=== PATIENT | male | born 1975 | race Caucasian/White ===

== ENCOUNTER 2023-09-12 12:08 | Outpatient (RCR) | payer OTHER, SELFPAY ==
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
== END 2023-09-14 11:59 | disposition home or self-care (01) ==
LOC: HO.PTMS 12:08
PROVIDERS: Visit Provider Psychiatry & Neurology Psychiatry
DX: F33.2 Major depressive disorder, recurrent severe without psychotic features (principal); F41.0 Panic disorder [episodic paroxysmal anxiety]; F42.9 Obsessive-compulsive disorder, unspecified; E11.9 Type 2 diabetes mellitus without complications; I10 Essential (primary) hypertension
CPT/HCPCS: 99205

== ENCOUNTER 2023-12-05 10:44 | Day surgery (SDC) | payer OTHER, SELFPAY ==
[2023-12-05 12:15] VITALS: BP 147/83; PULSE 98; RESP 14; TEMP 37.2; O2SAT 100
[2023-12-05 12:23] VITALS: BMI 37.1
[2023-12-05 12:54] LABS: Glucose, Whole Blood 148 mg/dL (60-115)
--- NOTE | 2023-12-05 13:17 | HO.ANESPROP2 ---
HPI - Anesthesia Eval Consult details Narrative: for ECT PMFSH Active Problems Active Problems: All Active Problems OCD (obsessive compulsive disorder) (Acute) Panic disorder (Acute) Essential hypertension (Acute) Non-insulin dependent type 2 diabetes mellitus (Acute) Major depressive disorder, recurrent severe without psychotic features (Acute) Past Medical History Medical History OCD (obsessive compulsive disorder) Panic disorder Essential hypertension Non-insulin dependent type 2 diabetes mellitus Major depressive disorder, recurrent severe without psychotic features Family History Family history of problems with anesthesia: No Surgical History History of Problems with Anesthesia: No Social History Social History Advance Directives: No Advance Directives Information Provided: Yes Meds Home Medications ?Medication ?Instructions ?Recorded ?Confirmed ?Last Taken ?Type lisinopril 12/02/23 Unknown History lorazepam 12/02/23 Unknown History metformin 12/02/23 Unknown History sertraline 12/02/23 12/02/23 Unknown History Exam Height,Weight and Vital Signs: Height 5 ft 6 in Weight 104.326 kg Last Vital Signs Temp 99 F 12/05/23 12:15 Pulse 98 12/05/23 12:15 Resp 14 12/05/23 12:15 BP 147/83 H 12/05/23 12:15 Pulse Ox 100 12/05/23 12:15 O2 Del Method Room Air 12/05/23 12:15 Pertinent Lab Results Pertinent Lab Results: Laboratory Tests 12/05/23 12:49 POC Glucose 148 H Airway Mallampati Class: III TM Dist: <=3cm Neck ROM: Limited Heart: rrr Lungs: cta Assessment and Plan Assessment Anesthesia Assessment: Anesthesia Plan Discussed Final Anesthetic Review Family History of Problems with Anesthesia: No History of Problems with Anesthesia: No NPO: Yes ASA Class: III Final Preanesthetic Review: No Changes in Pt Med Stat, Meds/Allgs Chart Reviewed, Consent Obtained/Reviewed and Anes Risks/Benef Reviewed Patient Risk: Intermediate Procedure Risk: Low Anesthetic Plan Anesthetic Plan: GA Disposition: Standard PACU
--- NOTE | 2023-12-05 13:43 | P.HPSUR_ITS ---
Pre-Procedural Eval Section A - 24 Hr Update-Section A only Date of Service: 12/05/23 The patient is an INPATIENT: Yes Changes since office visit: No Cold of Flu in the past 2 weeks, No New Medical Problems, No Changes in Medication and No Patient answered all questions The patient has been examined within 24 hours of the surgical procedure. The History & Physical has been completed within 30 days and I have reviewed it.: Yes Section B - Complete if H&P > 30 days Chief Complaint: depression Details of Present Illness: hx of depression, failure to several antidepressants Relevant Family History (Specify if Yes): No Relevant Social History: None Present Medications: see Short Stay Collaborative assessment Medical History: No relevant PMH History of Previous Operations: No relevant previous surgery Review of Systems Sugical H&P ROS: Negative: Constitution, Cardiovascular, Respiratory, Neurological, Psychiatric, Hem-Onc, Allergic/Immunologic, Gastrointestinal, Genitourinary, Musculoskeletal, Integumentary, Endocrine and Eyes /Ears/Nose/Throat Exam Surgical H&P Exam: Normal: HEENT, Normal: Heart, Normal: Lungs, Normal: Extremities, Normal: Abdomen, Normal: Skin and Normal: Neurological Plan Diagnosis/Plan: Unchanged I have reviewed the history and physical and performed a pertinent physical examination on my patient. No changes have occurred unless specified. Time Spent With Patient Time: Total time managing care of this patient today __30__ minutes.
--- NOTE | 2023-12-05 13:59 | HO.ECTPROC ---
ECT Procedure Note Diagnosis/Treatment Date of Service: 12/05/23 Diagnosis: Major Depressive Disorder Current Treatment Number: 1 Treatment: Series Interval Clinical Notes: The patient reported depression that has failed several anitdepressants, [facility] and decided to have ECT. No prior expereinec on ECT. 1ST ECT done on right unilateral 0.25 at 100%. The patient didn't fall sleep at all with Etomidate that was pushed extra 20 mg and finally, Propofol given with good result. ECT done with no complications, woke up well. Time: Total time managing care of this patient today __30__ minutes. ECT Settings Device: THYMATRON DGx Electrode Placement: Right Unilateral Program/Pulse Width: 0.25 Energy Percent: 100 Seizure Duration By EEG (in seconds): 20 By Motor Observation (in seconds): 55 Medications Administration General Anesthetic: Etomidate (20 mg with no total sedation) and Propofol (200 mg) Muscle Relaxant: Succinylcholine (160 mg) Airway Management Airway Management: Bag Mask Ventilation Treatment Recommendations Electrode Placement: Right Unilateral Program/Pulse Width: 0.25 Energy Percent: 90 Notes: The patient needed both Etomidate and Propofol to sedate him Pt Tolerated Procedure w/o Issue: Yes
[2023-12-05 14:03] VITALS: BP 168/88; PULSE 114; RESP 14; TEMP 36.5; O2SAT 99
[2023-12-05 14:08] VITALS: BP 190/95; PULSE 110; RESP 14; O2SAT 99
[2023-12-05 14:13] VITALS: BP 154/91; PULSE 108; RESP 15; O2SAT 94
[2023-12-05 14:18] VITALS: BP 161/97; PULSE 108; RESP 16; O2SAT 94
[2023-12-05 14:33] VITALS: BP 152/97; PULSE 98; RESP 16; TEMP 36.5; O2SAT 94
== END 2023-12-05 15:01 | disposition home or self-care (01) ==
PROVIDERS: Psychiatry & Neurology Psychiatry; Visit Provider Psychiatry & Neurology Psychiatry
PROC: (CPT 90870; principal; 2023-12-05 12:30)
DX: F33.2 Major depressive disorder, recurrent severe without psychotic features (principal); F42.9 Obsessive-compulsive disorder, unspecified; F41.0 Panic disorder [episodic paroxysmal anxiety]; F41.9 Anxiety disorder, unspecified; G89.29 Other chronic pain; M43.17 Spondylolisthesis, lumbosacral region; I10 Essential (primary) hypertension; E11.9 Type 2 diabetes mellitus without complications; Z79.84 Long term (current) use of oral hypoglycemic drugs; Z79.899 Other long term (current) drug therapy
CPT/HCPCS: 82947; 90870; J0330; J2405; J2704

== ENCOUNTER → 2023-12-05 10:44 | Outpatient (BNV) | payer OTHER, SELFPAY | PROVIDERS: Visit Provider Psychiatry & Neurology Psychiatry | DX: F33.3 Major depressive disorder, recurrent, severe with psychotic symptoms (principal) | CPT/HCPCS: 90870 ==

== ENCOUNTER 2023-12-07 05:52 | Day surgery (SDC) | payer OTHER, SELFPAY ==
[2023-12-07] VITALS (7 sets, daily range): BP systolic 156–185; BP diastolic 72–97; PULSE 93–125; RESP 15–18; TEMP 36.3–36.9; O2SAT 96–100; BMI 37.1
--- NOTE | 2023-12-07 07:32 | MHC.SHP ---
Pre-Procedural Eval Section A - 24 Hr Update-Section A only Date of Service: 12/07/23 The patient is an INPATIENT: No Changes since office visit: Yes Cold of Flu in the past 2 weeks, Yes New Medical Problems, Yes Changes in Medication and Yes Patient answered all questions The patient has been examined within 24 hours of the surgical procedure. The History & Physical has been completed within 30 days and I have reviewed it.: No Section B - Complete if H&P > 30 days Chief Complaint: depression Allergies: Allergies Allergy/AdvReac Type Severity Reaction Status Date / Time bupropion [From Wellbutrin] Allergy Seizure Verified 12/05/23 14:05 Plan I have reviewed the history and physical and performed a pertinent physical examination on my patient. No changes have occurred unless specified. Time Spent With Patient Time: Total time managing care of this patient today ____ minutes.
--- NOTE | 2023-12-07 07:38 | HO.ANESPROP2 ---
HPI - Anesthesia Eval Consult details Narrative: for ECT PMFSH Active Problems Active Problems: All Active Problems OCD (obsessive compulsive disorder) (Acute) Panic disorder (Acute) Essential hypertension (Acute) Non-insulin dependent type 2 diabetes mellitus (Acute) Major depressive disorder, recurrent severe without psychotic features (Acute) Past Medical History Medical History OCD (obsessive compulsive disorder) Panic disorder Essential hypertension Non-insulin dependent type 2 diabetes mellitus Major depressive disorder, recurrent severe without psychotic features Family History Family history of problems with anesthesia: No Surgical History History of Problems with Anesthesia: No Social History Social History Advance Directives: No Advance Directives Information Provided: Yes Meds Allergies Allergy/AdvReac Type Severity Reaction Status Date / Time bupropion [From Wellbutrin] Allergy Seizure Verified 12/05/23 14:05 Home Medications ?Medication ?Instructions ?Recorded ?Confirmed ?Last Taken ?Type lisinopril 12/02/23 Unknown History lorazepam 12/02/23 Unknown History metformin 12/02/23 Unknown History sertraline 12/02/23 12/02/23 Unknown History Exam Height,Weight and Vital Signs: Height 5 ft 6 in Weight 104.326 kg Last Vital Signs Temp 97.4 F 12/07/23 06:44 Pulse 93 12/07/23 06:44 Resp 16 12/07/23 06:44 BP 167/87 H 12/07/23 06:44 Pulse Ox 98 12/07/23 06:44 O2 Del Method Room Air 12/07/23 06:44 Airway Mallampati Class: III TM Dist: <=3cm Neck ROM: Full Loose/Missing/Broken Teeth: No Heart: ok Lungs: ok Assessment and Plan Assessment Anesthesia Assessment: Anesthesia Plan Discussed and Chart Reviewed Final Anesthetic Review Family History of Problems with Anesthesia: No History of Problems with Anesthesia: No NPO: Yes ASA Class: III Final Preanesthetic Review: No Changes in Pt Med Stat, Meds/Allgs Chart Reviewed, Consent Obtained/Reviewed and Anes Risks/Benef Reviewed Patient Risk: Intermediate Procedure Risk: Intermediate Anesthetic Plan Anesthetic Plan: GA and Agree w/ Assess. and Plan Disposition: Standard PACU
--- NOTE | 2023-12-07 07:50 | HO.ECTPROC ---
ECT Procedure Note Diagnosis/Treatment Date of Service: 12/07/23 Diagnosis: Major Depressive Disorder Previous ECT Date: 12/05/23 Current Treatment Number: 2 Treatment: Series Interval Clinical Notes: The patient reported still beend dysphoric. He had muscle aches and headaches after the first ECT. Today, we sedated him with Bervital 150 with fair response. ECT parameters lowered to 0.25 at 90% and he had a long seizure that resolved spontaneusly. He woke up well. Time: Total time managing care of this patient today ____ minutes. ECT Settings Device: THYMATRON DGx Electrode Placement: Right Unilateral Program/Pulse Width: 0.50 Energy Percent: 90 Seizure Duration By EEG (in seconds): 73 By Motor Observation (in seconds): 31 Medications Administration General Anesthetic: Methohexital (150) Muscle Relaxant: Succinylcholine (160) Ancillary Medications Analgesics: Torodol - Pre ECT Anti-emetics: Zofran - Pre ECT Airway Management Airway Management: Bag Mask Ventilation Treatment Recommendations Electrode Placement: Right Unilateral Program/Pulse Width: 0.25 Energy Percent: 80 Notes: Next time use Brevital 120 and lower the stimuli to 80% Pt Tolerated Procedure w/o Issue: Yes
== END 2023-12-07 10:41 | disposition home or self-care (01) ==
PROVIDERS: Visit Provider Psychiatry & Neurology Psychiatry
PROC: (CPT 90870; principal; 2023-12-07 07:30)
DX: F33.2 Major depressive disorder, recurrent severe without psychotic features (principal); F41.0 Panic disorder [episodic paroxysmal anxiety]; F42.9 Obsessive-compulsive disorder, unspecified; I10 Essential (primary) hypertension; E11.9 Type 2 diabetes mellitus without complications; Z79.84 Long term (current) use of oral hypoglycemic drugs; Z79.899 Other long term (current) drug therapy
CPT/HCPCS: 90870; J0330; J1885; J2250; J2704

== ENCOUNTER → 2023-12-07 05:52 | Outpatient (BNV) | payer OTHER, SELFPAY | PROVIDERS: Visit Provider Psychiatry & Neurology Psychiatry | DX: F33.3 Major depressive disorder, recurrent, severe with psychotic symptoms (principal) | CPT/HCPCS: 90870 ==

== ENCOUNTER 2023-12-09 05:48 | Day surgery (SDC) | payer OTHER, SELFPAY ==
[2023-12-09] VITALS (7 sets, daily range): BP systolic 126–157; BP diastolic 73–94; PULSE 86–108; RESP 16; TEMP 36.1–36.8; O2SAT 95–100; BMI 37.1
[2023-12-09 06:32] LABS: Glucose, Whole Blood 119 mg/dL (60-115)
--- NOTE | 2023-12-09 06:53 | P.CONAN_ITS ---
[facility] Active Problems Active Problems: All Active Problems OCD (obsessive compulsive disorder) (Acute) Panic disorder (Acute) Essential hypertension (Acute) Non-insulin dependent type 2 diabetes mellitus (Acute) Major depressive disorder, recurrent severe without psychotic features (Acute) Past Medical History Medical History OCD (obsessive compulsive disorder) Panic disorder Essential hypertension Non-insulin dependent type 2 diabetes mellitus Major depressive disorder, recurrent severe without psychotic features Family History Family history of problems with anesthesia: No Surgical History History of Problems with Anesthesia: No Social History Social History Advance Directives: No Advance Directives Information Provided: Yes Meds Allergies Allergy/AdvReac Type Severity Reaction Status Date / Time bupropion [From Wellbutrin] Allergy Seizure Verified 12/05/23 14:05 Active Medications: Current Medications Lactated Ringer's (Lr) 1,000 mls @ 50 mls/hr IVCONT .Q20H KISHAN Naloxone HCl (Naloxone Hcl 0.4 Mg/Ml Vial) 0.04 mg IVPUSH Q5M PRN PRN Reason: Excessive sedation or RR < 8 Home Medications ?Medication ?Instructions ?Recorded ?Confirmed ?Last Taken ?Type lisinopril 12/02/23 Unknown History lorazepam 12/02/23 Unknown History metformin 12/02/23 Unknown History sertraline 12/02/23 12/02/23 Unknown History Exam Height,Weight and Vital Signs: Height 5 ft 6 in Weight 104.326 kg Last Vital Signs Temp 97 F 12/09/23 06:40 Pulse 88 12/09/23 06:40 Resp 16 12/09/23 06:40 BP 134/79 12/09/23 06:40 Pulse Ox 97 12/09/23 06:40 O2 Del Method Room Air 12/09/23 06:40 Pertinent Lab Results Pertinent Lab Results: Laboratory Tests 12/09/23 06:28 POC Glucose 119 H Airway Mallampati Class: II TM Dist: >3cm Neck ROM: Full Heart: rrr Lungs: cta Assessment and Plan Assessment Anesthesia Assessment: Anesthesia Plan Discussed and Chart Reviewed Final Anesthetic Review Family History of Problems with Anesthesia: No History of Problems with Anesthesia: No NPO: Yes ASA Class: III Final Preanesthetic Review: No Changes in Pt Med Stat, Meds/Allgs Chart Reviewed and Consent Obtained/Reviewed Patient Risk: Intermediate Procedure Risk: Intermediate Anesthetic Plan Anesthetic Plan: GA Disposition: Standard PACU
[2023-12-09] MEDS: Lactated Ringers 1,000 ML 50 ML IVCONT (06:58)
--- NOTE | 2023-12-09 08:06 | HO.ECTPROC ---
ECT Procedure Note Diagnosis/Treatment Date of Service: 12/09/23 Diagnosis: Major Depressive Disorder Previous ECT Date: 12/07/23 Current Treatment Number: 3 Treatment: Series Interval Clinical Notes: pt with some anxiety post ect no clear change to mood ect done rul versed 2 mg post was helpful klonapin 0.5 po at d/c Time: Total time managing care of this patient today ____ minutes. ECT Settings Device: THYMATRON DGx Electrode Placement: Right Unilateral Program/Pulse Width: 0.25 Energy Percent: 80 Seizure Duration By EEG (in seconds): 72 Medications Administration General Anesthetic: Methohexital (120) Muscle Relaxant: Succinylcholine (160) Ancillary Medications Analgesics: Torodol - Pre ECT (30) Miscillaneous Medications: Midazolam (2 ) Airway Management Airway Management: Bag Mask Ventilation Treatment Recommendations Energy Percent: 65 Pt Tolerated Procedure w/o Issue: Yes
[2023-12-09] MEDS: clonazePAM 0.5 MG TABLET PO (08:32)
== END 2023-12-09 09:12 | disposition home or self-care (01) ==
PROVIDERS: Visit Provider Psychiatry & Neurology Psychiatry
PROC: (CPT 90870; principal; 2023-12-09 08:00)
DX: F33.2 Major depressive disorder, recurrent severe without psychotic features (principal); F41.0 Panic disorder [episodic paroxysmal anxiety]; F42.9 Obsessive-compulsive disorder, unspecified; I10 Essential (primary) hypertension; E11.9 Type 2 diabetes mellitus without complications; Z79.84 Long term (current) use of oral hypoglycemic drugs; Z79.899 Other long term (current) drug therapy
CPT/HCPCS: 82947; 90870; J0330; J1596; J1805; J1885; J2250; J2405; J2704

== ENCOUNTER → 2023-12-09 05:48 | Outpatient (BNV) | payer OTHER, SELFPAY | PROVIDERS: Visit Provider Psychiatry & Neurology Psychiatry | DX: F33.2 Major depressive disorder, recurrent severe without psychotic features (principal) | CPT/HCPCS: 90870 ==

== ENCOUNTER 2023-12-12 05:51 | Day surgery (SDC) | payer OTHER, SELFPAY ==
[2023-12-12] VITALS (7 sets, daily range): BP systolic 148–163; BP diastolic 74–94; PULSE 79–105; RESP 14–16; TEMP 35.9–37; O2SAT 94–97; BMI 37.1
--- NOTE | 2023-12-12 06:56 | HO.ANESPROP2 ---
HPI - Anesthesia Eval Consult details Narrative: For ECT. PMFSH Active Problems Active Problems: All Active Problems OCD (obsessive compulsive disorder) (Acute) Panic disorder (Acute) Essential hypertension (Acute) Non-insulin dependent type 2 diabetes mellitus (Acute) Major depressive disorder, recurrent severe without psychotic features (Acute) Past Medical History Medical History OCD (obsessive compulsive disorder) Panic disorder Essential hypertension Non-insulin dependent type 2 diabetes mellitus Major depressive disorder, recurrent severe without psychotic features Family History Family history of problems with anesthesia: No Surgical History History of Problems with Anesthesia: No Social History Social History Advance Directives: No Advance Directives Information Provided: Yes Meds Allergies Allergy/AdvReac Type Severity Reaction Status Date / Time bupropion [From Wellbutrin] Allergy Seizure Verified 12/05/23 14:05 Home Medications ?Medication ?Instructions ?Recorded ?Confirmed ?Last Taken ?Type lisinopril 12/02/23 Unknown History lorazepam 12/02/23 Unknown History metformin 12/02/23 Unknown History sertraline 12/02/23 12/02/23 Unknown History Exam Height,Weight and Vital Signs: Height 5 ft 6 in Weight 104.326 kg Last Vital Signs Temp 96.7 F L 12/12/23 06:42 Pulse 79 12/12/23 06:42 Resp 16 12/12/23 06:42 BP 152/85 H 12/12/23 06:42 Pulse Ox 97 12/12/23 06:42 O2 Del Method Room Air 12/12/23 06:42 Airway Mallampati Class: II TM Dist: <=3cm Neck ROM: Full Loose/Missing/Broken Teeth: No Heart: ok Lungs: ok Assessment and Plan Assessment Anesthesia Assessment: Anesthesia Plan Discussed and Chart Reviewed Final Anesthetic Review Family History of Problems with Anesthesia: No History of Problems with Anesthesia: No NPO: Yes ASA Class: III Final Preanesthetic Review: No Changes in Pt Med Stat, Meds/Allgs Chart Reviewed, Consent Obtained/Reviewed and Anes Risks/Benef Reviewed Patient Risk: Intermediate Procedure Risk: Intermediate Anesthetic Plan Anesthetic Plan: GA and Agree w/ Assess. and Plan Disposition: Standard PACU
--- NOTE | 2023-12-12 07:04 | MHC.SHP ---
Pre-Procedural Eval Section A - 24 Hr Update-Section A only Date of Service: 12/12/23 The patient is an INPATIENT: No Changes since office visit: No Cold of Flu in the past 2 weeks, No New Medical Problems, No Changes in Medication and No Patient answered all questions The patient has been examined within 24 hours of the surgical procedure. The History & Physical has been completed within 30 days and I have reviewed it.: Yes Section B - Complete if H&P > 30 days Chief Complaint: depression Allergies: Allergies Allergy/AdvReac Type Severity Reaction Status Date / Time bupropion [From Wellbutrin] Allergy Seizure Verified 12/05/23 14:05 Plan I have reviewed the history and physical and performed a pertinent physical examination on my patient. No changes have occurred unless specified. Time Spent With Patient Time: Total time managing care of this patient today ____ minutes.
[2023-12-12 07:17] LABS: Glucose, Whole Blood 107 mg/dL (60-115)
--- NOTE | 2023-12-12 07:45 | HO.ECTPROC ---
ECT Procedure Note Diagnosis/Treatment Date of Service: 12/12/23 Diagnosis: Major Depressive Disorder Previous ECT Date: 12/09/23 Current Treatment Number: 4 Treatment: Series Interval Clinical Notes: The patient reporst still dysphoria, over the weekend he was more agitated and anxious, no changes on his medications. Reported mild headache after ECT. ECT done with lower parameters on 0.25 at 78%. Seizure was optimal, resolved by itself, Versed used as usal post ECT. Woke up well. Time: Total time managing care of this patient today __30__ minutes. ECT Settings Device: THYMATRON DGx Electrode Placement: Right Unilateral Program/Pulse Width: 0.25 Energy Percent: 75 Seizure Duration By EEG (in seconds): 59 By Motor Observation (in seconds): 30 Medications Administration General Anesthetic: Methohexital (120) Muscle Relaxant: Succinylcholine (160) Ancillary Medications Miscillaneous Medications: Midazolam (after ECT) Airway Management Airway Management: Bag Mask Ventilation Treatment Recommendations No Changes Recommended: No change Pt Tolerated Procedure w/o Issue: Yes
[2023-12-12] MEDS: clonazePAM 1 MG TABLET PO (09:13)
--- NOTE | 2023-12-12 09:16 | PC.NURSE ---
PATIENT GIVEN KLONOPIN 1 MG PO PER ORDER AFTER CONTACTING DR. BEGUM PRIOR TO DISCHARGE.
== END 2023-12-12 09:17 | disposition home or self-care (01) ==
PROVIDERS: Visit Provider Psychiatry & Neurology Psychiatry
PROC: (CPT 90870; principal; 2023-12-12 08:00)
DX: F33.2 Major depressive disorder, recurrent severe without psychotic features (principal); F34.1 Dysthymic disorder; F41.0 Panic disorder [episodic paroxysmal anxiety]; F42.9 Obsessive-compulsive disorder, unspecified; I10 Essential (primary) hypertension; E11.9 Type 2 diabetes mellitus without complications; Z79.84 Long term (current) use of oral hypoglycemic drugs; Z79.899 Other long term (current) drug therapy; Z88.8 Allergy status to other drugs, medicaments and biological substances
CPT/HCPCS: 82947; 90870; J0330; J1885; J2250

== ENCOUNTER → 2023-12-12 05:51 | Outpatient (BNV) | payer OTHER, SELFPAY | PROVIDERS: Visit Provider Psychiatry & Neurology Psychiatry | DX: F33.2 Major depressive disorder, recurrent severe without psychotic features (principal) | CPT/HCPCS: 90870 ==

== ENCOUNTER 2023-12-14 05:52 | Day surgery (SDC) | payer OTHER, SELFPAY ==
[2023-12-14 06:31] LABS: Glucose, Whole Blood 120 mg/dL (60-115)
--- NOTE | 2023-12-14 06:37 | HO.ANESPROP2 ---
HPI - Anesthesia Eval Consult details Narrative: For ECT. PMFSH Active Problems Active Problems: All Active Problems OCD (obsessive compulsive disorder) (Acute) Panic disorder (Acute) Essential hypertension (Acute) Non-insulin dependent type 2 diabetes mellitus (Acute) Major depressive disorder, recurrent severe without psychotic features (Acute) Past Medical History Medical History (Updated 12/13/23 @ 12:14 by Raisa Matthews RN) Lumbosacral neuritis Degeneration of lumbosacral intervertebral disc Erectile dysfunction Opioid dependence in remission Atypical depressive disorder Smoker Chronic lower back pain Insomnia Hyperlipidemia Anxiety History of OCD (obsessive compulsive disorder) Pre-diabetes Seizure OCD (obsessive compulsive disorder) Panic disorder Essential hypertension Non-insulin dependent type 2 diabetes mellitus Major depressive disorder, recurrent severe without psychotic features Family History Family history of problems with anesthesia: No Surgical History History of Problems with Anesthesia: No Social History Social History Advance Directives: No Advance Directives Information Provided: Yes Meds Allergies Allergy/AdvReac Type Severity Reaction Status Date / Time bupropion [From Wellbutrin] Allergy Seizure Verified 12/05/23 14:05 Home Medications ?Medication ?Instructions ?Recorded ?Confirmed ?Last Taken ?Type lisinopril 12/02/23 Unknown History lorazepam 12/02/23 Unknown History metformin 12/02/23 Unknown History sertraline 12/02/23 12/02/23 Unknown History Exam Pertinent Lab Results Pertinent Lab Results: Laboratory Tests 12/14/23 06:26 POC Glucose 120 H Airway Mallampati Class: II TM Dist: <=3cm Neck ROM: Full Loose/Missing/Broken Teeth: No Heart: ok Lungs: ok Assessment and Plan Assessment Anesthesia Assessment: Anesthesia Plan Discussed and Chart Reviewed Final Anesthetic Review Family History of Problems with Anesthesia: No History of Problems with Anesthesia: No NPO: Yes ASA Class: III Final Preanesthetic Review: No Changes in Pt Med Stat, Meds/Allgs Chart Reviewed, Consent Obtained/Reviewed and Anes Risks/Benef Reviewed Patient Risk: Intermediate Procedure Risk: Intermediate Anesthetic Plan Anesthetic Plan: GA and Agree w/ Assess. and Plan Disposition: Standard PACU
[2023-12-14 06:50] VITALS: PULSE 85; RESP 16; TEMP 37.1; O2SAT 96; BMI 37.1
--- NOTE | 2023-12-14 07:31 | MHC.SHP ---
Pre-Procedural Eval Section A - 24 Hr Update-Section A only Date of Service: 12/14/23 The patient is an INPATIENT: No Changes since office visit: Yes Patient answered all questions; No Cold of Flu in the past 2 weeks, No New Medical Problems and No Changes in Medication The patient has been examined within 24 hours of the surgical procedure. The History & Physical has been completed within 30 days and I have reviewed it.: Yes Section B - Complete if H&P > 30 days Chief Complaint: depression Allergies: Allergies Allergy/AdvReac Type Severity Reaction Status Date / Time bupropion [From Wellbutrin] Allergy Seizure Verified 12/05/23 14:05 Plan I have reviewed the history and physical and performed a pertinent physical examination on my patient. No changes have occurred unless specified. Time Spent With Patient Time: Total time managing care of this patient today ____ minutes.
--- NOTE | 2023-12-14 07:48 | HO.ECTPROC ---
ECT Procedure Note Diagnosis/Treatment Date of Service: 12/14/23 Diagnosis: Major Depressive Disorder and Other (ptsd) Previous ECT Date: 12/12/23 Current Treatment Number: 5 Treatment: Series Interval Clinical Notes: pt remains depressed some agitation post ect previously did better today versed 2 post klonapin 1 prior to d/c discussed with pt change to BF to help response Time: Total time managing care of this patient today _30___ minutes. ECT Settings Device: THYMATRON DGx Electrode Placement: Bifrontal Program/Pulse Width: 0.25 Energy Percent: 80 Seizure Duration By EEG (in seconds): 42 Medications Administration General Anesthetic: Methohexital (120) Muscle Relaxant: Succinylcholine (160) Ancillary Medications Analgesics: Torodol - Pre ECT (30) Miscillaneous Medications: Midazolam (2) Airway Management Airway Management: Bag Mask Ventilation Treatment Recommendations No Changes Recommended: No change Notes: consider change to 0.5 pw Pt Tolerated Procedure w/o Issue: Yes
[2023-12-14 07:51] VITALS: BP 172/90; PULSE 110; RESP 18; TEMP 36.6; O2SAT 97
[2023-12-14 07:56] VITALS: BP 160/93; PULSE 108; RESP 17; O2SAT 96
[2023-12-14 08:01] VITALS: BP 172/95; PULSE 107; RESP 17; O2SAT 95
[2023-12-14 08:06] VITALS: BP 160/92; PULSE 105; RESP 17; O2SAT 95
[2023-12-14] MEDS: clonazePAM 1 MG TABLET PO (08:14)
[2023-12-14 08:22] VITALS: BP 173/92; PULSE 90; RESP 18; TEMP 36.3; O2SAT 96
== END 2023-12-14 08:38 | disposition home or self-care (01) ==
PROVIDERS: Visit Provider Psychiatry & Neurology Psychiatry
PROC: (CPT 90870; principal; 2023-12-14 07:00)
DX: F33.2 Major depressive disorder, recurrent severe without psychotic features (principal); F43.10 Post-traumatic stress disorder, unspecified; F42.9 Obsessive-compulsive disorder, unspecified; F41.0 Panic disorder [episodic paroxysmal anxiety]; I10 Essential (primary) hypertension; E11.9 Type 2 diabetes mellitus without complications; Z79.84 Long term (current) use of oral hypoglycemic drugs; Z79.899 Other long term (current) drug therapy; Z88.8 Allergy status to other drugs, medicaments and biological substances
CPT/HCPCS: 82947; 90870; J0330; J1885; J2250

== ENCOUNTER → 2023-12-14 05:52 | Outpatient (BNV) | payer OTHER, SELFPAY | PROVIDERS: Visit Provider Psychiatry & Neurology Psychiatry | DX: F33.3 Major depressive disorder, recurrent, severe with psychotic symptoms (principal) | CPT/HCPCS: 90870 ==

== ENCOUNTER 2023-12-16 05:48 | Day surgery (SDC) | payer OTHER, SELFPAY ==
[2023-12-16] VITALS (7 sets, daily range): BP systolic 144–172; BP diastolic 76–87; PULSE 79–100; RESP 16–19; TEMP 36.4–37.3; O2SAT 95–98; BMI 38.7
--- NOTE | 2023-12-16 06:59 | HO.ANESPROP2 ---
HPI - Anesthesia Eval Consult details Narrative: 48 yo M presenting for ECT PMF Active Problems Active Problems: All Active Problems OCD (obsessive compulsive disorder) (Acute) Panic disorder (Acute) Essential hypertension (Acute) Non-insulin dependent type 2 diabetes mellitus (Acute) Major depressive disorder, recurrent severe without psychotic features (Acute) Past Medical History Medical History (Updated 12/13/23 @ 12:14 by Raisa Matthews RN) Lumbosacral neuritis Degeneration of lumbosacral intervertebral disc Erectile dysfunction Opioid dependence in remission Atypical depressive disorder Smoker Chronic lower back pain Insomnia Hyperlipidemia Anxiety History of OCD (obsessive compulsive disorder) Pre-diabetes Seizure OCD (obsessive compulsive disorder) Panic disorder Essential hypertension Non-insulin dependent type 2 diabetes mellitus Major depressive disorder, recurrent severe without psychotic features Family History Family history of problems with anesthesia: No Surgical History History of Problems with Anesthesia: No Social History Social History Advance Directives: No Advance Directives Information Provided: Yes Meds Allergies Allergy/AdvReac Type Severity Reaction Status Date / Time bupropion [From Wellbutrin] Allergy Seizure Verified 12/05/23 14:05 Home Medications ?Medication ?Instructions ?Recorded ?Confirmed ?Last Taken ?Type lisinopril 12/02/23 Unknown History lorazepam 12/02/23 Unknown History metformin 12/02/23 Unknown History sertraline 12/02/23 12/02/23 Unknown History Exam Exam Date and Time: 12/16/23 0655 Height,Weight and Vital Signs: Height 5 ft 6 in Weight 108.862 kg Last Vital Signs Temp 97.5 F 12/16/23 06:41 Pulse 79 12/16/23 06:41 Resp 16 12/16/23 06:41 BP 144/79 H 12/16/23 06:41 Pulse Ox 96 12/16/23 06:41 O2 Del Method Room Air 12/16/23 06:41 Airway Mallampati Class: I TM Dist: >3cm Neck ROM: Full Loose/Missing/Broken Teeth: No (patient denies any loose or broken teeth) Heart: S1S2 Lungs: CTAB Assessment and Plan Assessment Anesthesia Assessment: Anesthesia Plan Discussed and Chart Reviewed Final Anesthetic Review Family History of Problems with Anesthesia: No History of Problems with Anesthesia: No NPO: Yes ASA Class: III Final Preanesthetic Review: No Changes in Pt Med Stat, Meds/Allgs Chart Reviewed, Consent Obtained/Reviewed and Anes Risks/Benef Reviewed Patient Risk: Low Procedure Risk: Low Anesthetic Plan Anesthetic Plan: GA and Agree w/ Assess. and Plan Disposition: Standard PACU
--- NOTE | 2023-12-16 07:17 | MHC.SHP ---
Pre-Procedural Eval Section A - 24 Hr Update-Section A only Date of Service: 12/16/23 The patient is an INPATIENT: No Changes since office visit: Yes Patient answered all questions; No Cold of Flu in the past 2 weeks, No New Medical Problems and No Changes in Medication The patient has been examined within 24 hours of the surgical procedure. The History & Physical has been completed within 30 days and I have reviewed it.: Yes Section B - Complete if H&P > 30 days Chief Complaint: depression Allergies: Allergies Allergy/AdvReac Type Severity Reaction Status Date / Time bupropion [From Wellbutrin] Allergy Seizure Verified 12/05/23 14:05 Plan I have reviewed the history and physical and performed a pertinent physical examination on my patient. No changes have occurred unless specified. Time Spent With Patient Time: Total time managing care of this patient today ____ minutes.
--- NOTE | 2023-12-16 07:18 | HO.ECTPROC ---
ECT Procedure Note Diagnosis/Treatment Date of Service: 12/19/23 Diagnosis: Major Depressive Disorder Previous ECT Date: 12/16/23 Current Treatment Number: 6 Treatment: Series Interval Clinical Notes: pt without clear improvenent to this pt no cognitive s/e noted change to BF Time: Total time managing care of this patient today ____ minutes. ECT Settings Device: THYMATRON DGx Electrode Placement: Bifrontal Program/Pulse Width: 0.50 Energy Percent: 80 Seizure Duration By EEG (in seconds): 44 Medications Administration General Anesthetic: Methohexital (120) Muscle Relaxant: Succinylcholine (160) Ancillary Medications Analgesics: Torodol - Pre ECT (30) Miscillaneous Medications: Midazolam (2) Airway Management Airway Management: Bag Mask Ventilation Treatment Recommendations No Changes Recommended: No change Notes: klonopin 1 mg prn tolerated tx some post op irritability Pt Tolerated Procedure w/o Issue: Yes
[2023-12-16] MEDS: clonazePAM 1 MG TABLET PO (08:10)
== END 2023-12-16 08:34 | disposition home or self-care (01) ==
PROVIDERS: Visit Provider Psychiatry & Neurology Psychiatry
PROC: (CPT 90870; principal; 2023-12-16 07:00)
DX: F33.2 Major depressive disorder, recurrent severe without psychotic features (principal); I10 Essential (primary) hypertension; E78.5 Hyperlipidemia, unspecified; E11.9 Type 2 diabetes mellitus without complications; F42.9 Obsessive-compulsive disorder, unspecified; F41.0 Panic disorder [episodic paroxysmal anxiety]; R56.9 Unspecified convulsions; Z79.899 Other long term (current) drug therapy; Z79.84 Long term (current) use of oral hypoglycemic drugs; Z88.8 Allergy status to other drugs, medicaments and biological substances
CPT/HCPCS: 90870; J0330; J1885; J2250

== ENCOUNTER → 2023-12-16 05:48 | Outpatient (BNV) | payer OTHER, SELFPAY | PROVIDERS: Visit Provider Psychiatry & Neurology Psychiatry | DX: F33.3 Major depressive disorder, recurrent, severe with psychotic symptoms (principal) | CPT/HCPCS: 90870 ==

== ENCOUNTER 2023-12-21 05:47 | Day surgery (SDC) | payer OTHER, SELFPAY ==
[2023-12-21] VITALS (7 sets, daily range): BP systolic 136–178; BP diastolic 70–83; PULSE 90–107; RESP 13–17; TEMP 36.3–37.1; O2SAT 95–98; BMI 37.1
--- NOTE | 2023-12-21 06:45 | P.CONAN_ITS ---
FORMERLY [facility], [facility] Active Problems Active Problems: All Active Problems OCD (obsessive compulsive disorder) (Acute) Panic disorder (Acute) Essential hypertension (Acute) Non-insulin dependent type 2 diabetes mellitus (Acute) Major depressive disorder, recurrent severe without psychotic features (Acute) Past Medical History Medical History (Updated 12/13/23 @ 12:14 by Raisa Matthews RN) Lumbosacral neuritis Degeneration of lumbosacral intervertebral disc Erectile dysfunction Opioid dependence in remission Atypical depressive disorder Smoker Chronic lower back pain Insomnia Hyperlipidemia Anxiety History of OCD (obsessive compulsive disorder) Pre-diabetes Seizure OCD (obsessive compulsive disorder) Panic disorder Essential hypertension Non-insulin dependent type 2 diabetes mellitus Major depressive disorder, recurrent severe without psychotic features Family History Family history of problems with anesthesia: No Surgical History History of Problems with Anesthesia: No Social History Social History Advance Directives: No Advance Directives Information Provided: Yes Meds Allergies Allergy/AdvReac Type Severity Reaction Status Date / Time bupropion [From Wellbutrin] Allergy Seizure Verified 12/05/23 14:05 Home Medications ?Medication ?Instructions ?Recorded ?Confirmed ?Last Taken ?Type lisinopril 12/02/23 Unknown History lorazepam 12/02/23 Unknown History metformin 12/02/23 Unknown History sertraline 12/02/23 12/02/23 Unknown History Exam Airway Mallampati Class: II TM Dist: >3cm Neck ROM: Full Heart: rrr Lungs: cta Assessment and Plan Assessment Anesthesia Assessment: Anesthesia Plan Discussed and Chart Reviewed Final Anesthetic Review Family History of Problems with Anesthesia: No History of Problems with Anesthesia: No NPO: Yes ASA Class: III Final Preanesthetic Review: No Changes in Pt Med Stat, Meds/Allgs Chart Reviewed and Consent Obtained/Reviewed Patient Risk: Intermediate Procedure Risk: Low Anesthetic Plan Anesthetic Plan: GA Disposition: Standard PACU
[2023-12-21 06:53] LABS: Glucose, Whole Blood 125 mg/dL (60-115)
--- NOTE | 2023-12-21 07:25 | MHC.SHP ---
Pre-Procedural Eval Section A - 24 Hr Update-Section A only Date of Service: 12/21/23 Section B - Complete if H&P > 30 days Chief Complaint: depression Details of Present Illness: no improvement denies active si discussed change to BT Relevant Social History: None Present Medications: see Short Stay Collaborative assessment Allergies: Allergies Allergy/AdvReac Type Severity Reaction Status Date / Time bupropion [From Wellbutrin] Allergy Seizure Verified 12/05/23 14:05 Review of Systems Sugical H&P ROS: Negative: Cardiovascular and Respiratory and Yes, Specify: Psychiatric (cont quite depressed hopeless no si) Exam Surgical H&P Exam: Normal: Heart (rr), Normal: Lungs (clear ), Normal: Extremities and Normal: Neurological Exam Comment: 136/78 p 90 Plan Diagnosis/Plan: Unchanged I have reviewed the history and physical and performed a pertinent physical examination on my patient. No changes have occurred unless specified. Time Spent With Patient Time: Total time managing care of this patient today ____ minutes.
--- NOTE | 2023-12-21 07:32 | HO.ECTPROC ---
ECT Procedure Note Diagnosis/Treatment Date of Service: 12/21/23 Diagnosis: Major Depressive Disorder Previous ECT Date: 12/16/23 Current Treatment Number: 7 Treatment: Series Interval Clinical Notes: pt quite depressed agreeable to change to bt discussed risk benefits hopeless denies active si did not feel inpt was required ect completed bt some post op confusion given versed 2 mg post klonopin 1 mg prn Time: Total time managing care of this patient today __30__ minutes. 3 ECT Settings Device: THYMATRON DGx Electrode Placement: Bitemporal Program/Pulse Width: 0.50 Energy Percent: 100 Seizure Duration By EEG (in seconds): 52 Medications Administration General Anesthetic: Methohexital (120) Muscle Relaxant: Succinylcholine (160) Ancillary Medications Analgesics: Torodol - Pre ECT Anti-emetics: Zofran - Pre ECT Miscillaneous Medications: Midazolam (2) Airway Management Airway Management: Bag Mask Ventilation Treatment Recommendations Notes: continue BT
[2023-12-21] MEDS: clonazePAM 1 MG TABLET PO (08:16)
== END 2023-12-21 09:15 | disposition home or self-care (01) ==
PROVIDERS: Visit Provider Psychiatry & Neurology Psychiatry
PROC: (CPT 90870; principal; 2023-12-21 07:00)
DX: F33.2 Major depressive disorder, recurrent severe without psychotic features (principal); F42.9 Obsessive-compulsive disorder, unspecified; F41.0 Panic disorder [episodic paroxysmal anxiety]; I10 Essential (primary) hypertension; E78.5 Hyperlipidemia, unspecified; E11.9 Type 2 diabetes mellitus without complications; R56.9 Unspecified convulsions; Z79.84 Long term (current) use of oral hypoglycemic drugs; Z88.8 Allergy status to other drugs, medicaments and biological substances
CPT/HCPCS: 82947; 90870; J0330; J1885; J2250

== ENCOUNTER → 2023-12-21 05:47 | Outpatient (BNV) | payer OTHER, SELFPAY | PROVIDERS: Visit Provider Psychiatry & Neurology Psychiatry | DX: F33.3 Major depressive disorder, recurrent, severe with psychotic symptoms (principal) | CPT/HCPCS: 90870 ==

== ENCOUNTER → 2023-12-23 08:05 | Day surgery (SDC) | payer OTHER, SELFPAY | PROVIDERS: Visit Provider Psychiatry & Neurology Psychiatry | DX: F33.2 Major depressive disorder, recurrent severe without psychotic features (principal); Z53.29 Procedure and treatment not carried out because of patient's decision for other reasons; R69 Illness, unspecified ==

== ENCOUNTER 2024-01-02 05:57 | Day surgery (SDC) | payer OTHER, SELFPAY ==
[2024-01-02 06:47] VITALS: BP 159/86; PULSE 85; RESP 14; TEMP 36.9; O2SAT 97; BMI 36.3
[2024-01-02 07:09] LABS: Glucose, Whole Blood 120 mg/dL (60-115)
[2024-01-02] MEDS: Lactated Ringers 1,000 ML 100 ML IVCONT (07:12)
--- NOTE | 2024-01-02 08:18 | HO.ANESPROP2 ---
HPI - Anesthesia Eval Consult details Narrative: depression PMFSH Active Problems Active Problems: All Active Problems OCD (obsessive compulsive disorder) (Acute) Panic disorder (Acute) Essential hypertension (Acute) Non-insulin dependent type 2 diabetes mellitus (Acute) Major depressive disorder, recurrent severe without psychotic features (Acute) Past Medical History Medical History Lumbosacral neuritis Degeneration of lumbosacral intervertebral disc Erectile dysfunction Opioid dependence in remission Atypical depressive disorder Smoker Chronic lower back pain Insomnia Hyperlipidemia Anxiety History of OCD (obsessive compulsive disorder) Pre-diabetes Seizure OCD (obsessive compulsive disorder) Panic disorder Essential hypertension Non-insulin dependent type 2 diabetes mellitus Major depressive disorder, recurrent severe without psychotic features Family History Family history of problems with anesthesia: No Surgical History History of Problems with Anesthesia: No Social History Social History Advance Directives: No Advance Directives Information Provided: Yes Meds Allergies Allergy/AdvReac Type Severity Reaction Status Date / Time bupropion [From Wellbutrin] Allergy Seizure Verified 12/05/23 14:05 Active Medications: Current Medications Lactated Ringer's (Lr) 1,000 mls @ 100 mls/hr IVCONT .Q10H KISHAN Last Admin: 01/02/24 07:12 Dose: 100 mls/hr Home Medications ?Medication ?Instructions ?Recorded ?Confirmed ?Last Taken ?Type lisinopril 12/02/23 Unknown History lorazepam 12/02/23 Unknown History metformin 12/02/23 Unknown History sertraline 12/02/23 12/02/23 Unknown History Exam Height,Weight and Vital Signs: Height 5 ft 6 in Weight 102.058 kg Last Vital Signs Temp 98.5 F 01/02/24 06:47 Pulse 85 01/02/24 06:47 Resp 14 01/02/24 06:47 BP 159/86 H 01/02/24 06:47 Pulse Ox 97 01/02/24 06:47 O2 Del Method Room Air 01/02/24 06:47 Pertinent Lab Results Pertinent Lab Results: Laboratory Tests 01/02/24 07:04 POC Glucose 120 H Airway Mallampati Class: II TM Dist: >3cm Neck ROM: Full Heart: rrr Lungs: cta Assessment and Plan Assessment Anesthesia Assessment: Anesthesia Plan Discussed Final Anesthetic Review Family History of Problems with Anesthesia: No History of Problems with Anesthesia: No NPO: Yes ASA Class: III Final Preanesthetic Review: No Changes in Pt Med Stat, Meds/Allgs Chart Reviewed, Consent Obtained/Reviewed and Anes Risks/Benef Reviewed Patient Risk: Intermediate Procedure Risk: Low Anesthetic Plan Anesthetic Plan: GA Disposition: Standard PACU
[2024-01-02 08:31] VITALS: BP 150/86; PULSE 98; RESP 12; TEMP 36.8; O2SAT 99
[2024-01-02 08:36] VITALS: BP 155/87; PULSE 92; RESP 14; O2SAT 99
[2024-01-02 08:41] VITALS: BP 159/95; PULSE 91; RESP 14; O2SAT 99
[2024-01-02 08:46] VITALS: BP 146/78; PULSE 89; RESP 14; O2SAT 97
[2024-01-02 09:01] VITALS: BP 140/88; PULSE 89; RESP 16; TEMP 36.8; O2SAT 96
--- NOTE | 2024-01-31 21:59 | HO.ECTPROC ---
ECT Procedure Note Diagnosis/Treatment Date of Service: 01/02/24 Diagnosis: Major Depressive Disorder Current Treatment Number: 8 Treatment: Series Interval Clinical Notes: Pt remains depressed with some anxiety agitation feels like he wishes to go forward after discussion. Has some st memory problems alert well oriented. Agrees with change to BT since no clear improvement Time: Total time managing care of this patient today ____ minutes. ECT Settings Device: THYMATRON DGx Electrode Placement: Bitemporal Program/Pulse Width: 0.50 Energy Percent: 100 Seizure Duration By EEG (in seconds): 78 Medications Administration General Anesthetic: Methohexital Muscle Relaxant: Succinylcholine (120) Ancillary Medications Analgesics: Torodol - Pre ECT Miscillaneous Medications: Midazolam (2 mg) Airway Management Airway Management: Bag Mask Ventilation Treatment Recommendations Notes: monitor response to change to BT if no response in next 2 will d/c trial some post op anxiety much better with versed
--- NOTE | 2024-01-31 22:05 | MHC.SHP ---
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 Relevant Social History: None Present Medications: see Short Stay Collaborative assessment Allergies: Allergies Allergy/AdvReac Type Severity Reaction Status Date / Time bupropion [From Wellbutrin] Allergy Seizure Verified 12/05/23 14:05 Review of Systems Sugical H&P ROS: Negative: Cardiovascular and Respiratory and Yes, Specify: Psychiatric (cont quite depressed hopeless no si) Review of Systems Comment: no sig cold sx or sob Exam Surgical H&P Exam: Normal: Heart (rr), Normal: Lungs (clear ), Normal: Extremities and Normal: Neurological Exam Comment: 136/78 p 90 Plan Diagnosis/Plan: Unchanged I have reviewed the history and physical and performed a pertinent physical examination on my patient. No changes have occurred unless specified. Time Spent With Patient Time: Total time managing care of this patient today ____ minutes.
--- NOTE | 2024-02-01 09:24 | HO.ECTPROC ---
ECT Procedure Note Diagnosis/Treatment Date of Service: 01/02/24 Diagnosis: Bipolar disorder Interval Clinical Notes: The patient denies side effects with previous ECT, procedure done as usual. No complications Time: Total time managing care of this patient today _30___ minutes. ECT Settings Device: THYMATRON DGx Electrode Placement: Bitemporal Program/Pulse Width: 0.50 Energy Percent: 100 Medications Administration General Anesthetic: Etomidate Muscle Relaxant: Succinylcholine Ancillary Medications Miscillaneous Medications: Midazolam Airway Management Airway Management: Bag Mask Ventilation Treatment Recommendations No Changes Recommended: No change Pt Tolerated Procedure w/o Issue: Yes
== END 2024-01-02 10:22 | disposition home or self-care (01) ==
PROVIDERS: Visit Provider Psychiatry & Neurology Psychiatry
PROC: (CPT 90870; principal; 2024-01-02 07:30)
DX: F33.2 Major depressive disorder, recurrent severe without psychotic features (principal); F42.9 Obsessive-compulsive disorder, unspecified; F41.0 Panic disorder [episodic paroxysmal anxiety]; I10 Essential (primary) hypertension; E78.5 Hyperlipidemia, unspecified; E11.9 Type 2 diabetes mellitus without complications; R56.9 Unspecified convulsions; Z79.84 Long term (current) use of oral hypoglycemic drugs; Z79.899 Other long term (current) drug therapy; Z88.8 Allergy status to other drugs, medicaments and biological substances
CPT/HCPCS: 82947; 90870; J0330; J1885; J2250

== ENCOUNTER → 2024-01-02 05:57 | Outpatient (BNV) | payer OTHER, SELFPAY | PROVIDERS: Visit Provider Psychiatry & Neurology Psychiatry | DX: F33.2 Major depressive disorder, recurrent severe without psychotic features (principal) | CPT/HCPCS: 90870 ==

== ENCOUNTER → 2024-01-02 05:57 | Outpatient (BNV) | payer OTHER, SELFPAY | PROVIDERS: Visit Provider Psychiatry & Neurology Psychiatry | DX: F33.2 Major depressive disorder, recurrent severe without psychotic features (principal) | CPT/HCPCS: 90870 ==

== ENCOUNTER 2024-01-12 07:59 | Outpatient (REF) | payer OTHER, SELFPAY ==
--- NOTE | 2024-01-12 08:03 | EEG_ITS ---
This is a 16-channel EEG with an EKG lead. The patient is reported awake during the tracing. Background EEG rhythm is low to medium amplitude, mixed theta, beta with no obvious asymmetry or paroxysmal tendency. Photic stimulation does not produce any significant abnormality. Hyperventilation is not performed. Cardiac lead does not reveal any significant abnormality. No sharp wave spikes or paroxysmal tendency noted. IMPRESSION: No significant abnormality noted on this EEG to suggest he has seizure disorder. MD PRABHJOT Gupta/BERNARDA / [phone]
== END 2024-01-12 08:00 | disposition home or self-care (01) ==
LOC: HO.NEURO 07:59
PROVIDERS: Visit Provider Internal Medicine
DX: F32.A Depression, unspecified (principal)
CPT/HCPCS: 95816

== ENCOUNTER → 2024-07-03 10:34 | Outpatient (BNV) | payer OTHER, SELFPAY | PROVIDERS: PCP Internal Medicine; Visit Provider Clinical Nurse Specialist Psychiatric/Mental Health | DX: F33.2 Major depressive disorder, recurrent severe without psychotic features (principal) | CPT/HCPCS: 90791; 90867; 90868 ==

== ENCOUNTER 2024-09-03 10:00 | Outpatient (RCR) | payer OTHER, SELFPAY ==
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
--- NOTE | 2024-07-12 14:47 | HO.TMSDAILY2 ---
TMS Daily Progress Note Daily TMS Progress Note Date of Service: 07/10/24 Week #: 1 Treatment #(04-05): #1 and mapping PHQ-9 Pre-Treatment (-): 26 PHQ-9 Most Recent (04-02): 26 OLEGARIO-7 Pre-Treatment (0-21): 21 OLEGARIO-7 Most Recent (0-21): 21 CGI-I Most Recent: 4 = No Change Q-LES-Q-SF Most Recent: 37 Reviewed: TMS Mapping/Re-mapping completed Verification: I have reviewed the TMS Farm Management Teacher Note and agree with the contents. The patient remains a candidate to continue TMS treatment per protocol. Assessment and Plan (1) Major depressive disorder, recurrent severe without psychotic features: Status: Acute Plan continue TMS plan per protocol; MT 1.31 Total time managing care of this patient today: 40 minutes.
--- NOTE | 2024-07-16 12:55 | HO.TMSDAILY2 ---
TMS Daily Progress Note Daily TMS Progress Note Date of Service: 07/16/24 Week #: 1 Treatment #(04-05): 5 PHQ-9 Pre-Treatment (-): 26 PHQ-9 Most Recent (04-02): 18 OLEGARIO-7 Pre-Treatment (0-21): 21 OLEGARIO-7 Most Recent (0-21): 21 CGI-I Most Recent: 4 = No Change Q-LES-Q-SF Most Recent: 37 Reviewed: TMS Tech Note Reviewed Verification: I have reviewed the TMS Finishing Frame Runner Note and agree with the contents. The patient remains a candidate to continue TMS treatment per protocol. Assessment and Plan (1) Major depressive disorder, recurrent severe without psychotic features: Status: Acute Plan continue with TMS treatment plan
--- NOTE | 2024-07-17 12:42 | P.PNPS_ITS ---
TMS Daily Progress Note Daily TMS Progress Note Date of Service: 07/17/24 Week #: 2 Treatment #(-): 6 PHQ-9 Pre-Treatment (1-): 26 PHQ-9 Most Recent (04-02): 18 OLEGARIO-7 Pre-Treatment (0-21): 21 OLEGARIO-7 Most Recent (0-21): 21 CGI-I Most Recent: 4 = No Change Q-LES-Q-SF Most Recent: 37 Reviewed: TMS Tech Note Reviewed Verification: I have reviewed the TMS Skirt Panel Assembler Note and agree with the contents. The patient remains a candidate to continue TMS treatment per protocol. Assessment and Plan (1) Major depressive disorder, recurrent severe without psychotic features: Status: Acute Plan continue with TMS treatment plan
--- NOTE | 2024-07-31 13:02 | HO.TMSDAILY2 ---
TMS Daily Progress Note Daily TMS Progress Note Date of Service: 07/12/24 Week #: 1 Treatment #(04-05): 3 PHQ-9 Pre-Treatment (-): 26 PHQ-9 Most Recent (04-02): 26 OLEGARIO-7 Pre-Treatment (0-21): 21 OLEGARIO-7 Most Recent (0-21): 21 CGI-I Most Recent: 0 = Not Assessed Q-LES-Q-SF Most Recent: 37 Reviewed: TMS Tech Note Reviewed Verification: I have reviewed the TMS Hot Die Press Operator Note and agree with the contents. The patient remains a candidate to continue TMS treatment per protocol. Assessment and Plan (1) Major depressive disorder, recurrent severe without psychotic features: Status: Acute Plan continue with tms tx plan
--- NOTE | 2024-07-31 13:08 | HO.TMSDAILY2 ---
TMS Daily Progress Note Daily TMS Progress Note Date of Service: 07/19/24 Week #: 2 Treatment #(-): 8 PHQ-9 Pre-Treatment (1-): 26 PHQ-9 Most Recent (04-02): 18 OLEGARIO-7 Pre-Treatment (0-21): 21 OLEGARIO-7 Most Recent (0-21): 21 CGI-I Most Recent: 0 = Not Assessed Q-LES-Q-SF Most Recent: 37 Reviewed: TMS Tech Note Reviewed Verification: I have reviewed the TMS Electric Shovel Operator Note and agree with the contents. The patient remains a candidate to continue TMS treatment per protocol. Assessment and Plan (1) Major depressive disorder, recurrent severe without psychotic features: Status: Acute Plan continue tms tx plan
--- NOTE | 2024-07-31 13:09 | P.PNPS_ITS ---
TMS Daily Progress Note Daily TMS Progress Note Date of Service: 07/23/24 Week #: 2 Treatment #(-): 10 PHQ-9 Pre-Treatment (-): 26 PHQ-9 Most Recent (04-02): 21 OLEGARIO-7 Pre-Treatment (0-21): 21 OLEGARIO-7 Most Recent (0-21): 18 CGI-I Most Recent: 0 = Not Assessed Q-LES-Q-SF Most Recent: 37 Reviewed: TMS Tech Note Reviewed Verification: I have reviewed the TMS Patient Transportation Driver Note and agree with the contents. The patient remains a candidate to continue TMS treatment per protocol. Assessment and Plan (1) Major depressive disorder, recurrent severe without psychotic features: Status: Acute (2) OCD (obsessive compulsive disorder): Qualifiers: Obsessive-compulsive disorder type: mixed obsessional thoughts and acts Qualified Code(s): F42.2 - Mixed obsessional thoughts and acts Status: Acute Plan pt intrusive passive SI discussed with TMD store facility technician and with medical equipment sales- appear to be part of OCD and he denies plan or intent to act on theses. continue tms tx pplan; provide support, continue to monitor SI
--- NOTE | 2024-07-31 13:12 | P.PNPS_ITS ---
TMS Daily Progress Note Daily TMS Progress Note Date of Service: 07/24/24 Week #: 3 Treatment #(04-05): 11 PHQ-9 Pre-Treatment (-): 26 PHQ-9 Most Recent (04-02): 21 OLEGARIO-7 Pre-Treatment (0-21): 21 OLEGARIO-7 Most Recent (0-21): 18 CGI-I Most Recent: 0 = Not Assessed Q-LES-Q-SF Most Recent: 37 Reviewed: TMS Tech Note Reviewed Verification: I have reviewed the TMS Tattoo Designer Note and agree with the contents. The patient remains a candidate to continue TMS treatment per protocol. Assessment and Plan (1) Major depressive disorder, recurrent severe without psychotic features: Status: Acute (2) OCD (obsessive compulsive disorder): Qualifiers: Obsessive-compulsive disorder type: mixed obsessional thoughts and acts Qualified Code(s): F42.2 - Mixed obsessional thoughts and acts Status: Acute Plan continue tms tx plan
--- NOTE | 2024-07-31 13:13 | HO.TMSDAILY2 ---
TMS Daily Progress Note Daily TMS Progress Note Date of Service: 07/31/24 Week #: 3 Treatment #(04-05): 15 PHQ-9 Pre-Treatment (-): 26 PHQ-9 Most Recent (04-02): 22 OLEGARIO-7 Pre-Treatment (0-21): 21 OLEGARIO-7 Most Recent (0-21): 17 CGI-I Most Recent: 0 = Not Assessed Q-LES-Q-SF Most Recent: 37 Reviewed: TMS Tech Note Reviewed Verification: I have reviewed the TMS Manager Surgical Note and agree with the contents. The patient remains a candidate to continue TMS treatment per protocol. Assessment and Plan (1) OCD (obsessive compulsive disorder): Qualifiers: Obsessive-compulsive disorder type: mixed obsessional thoughts and acts Qualified Code(s): F42.2 - Mixed obsessional thoughts and acts Status: Acute (2) Major depressive disorder, recurrent severe without psychotic features: Status: Acute Plan pt reports change in energy and low mood and not wanting to get out of bed last we. Plan is to remap and reassess; re-mapping scheduled for
--- NOTE | 2024-08-01 16:23 | HO.TMSDAILY2 ---
TMS Daily Progress Note Daily TMS Progress Note Date of Service: 08/01/24 Week #: 1 Treatment #(04-05): 2 PHQ-9 Pre-Treatment (-): 26 PHQ-9 Most Recent (04-02): 26 OLEGARIO-7 Pre-Treatment (0-21): 21 OLEGARIO-7 Most Recent (0-21): 17 CGI-I Most Recent: 0 = Not Assessed Q-LES-Q-SF Most Recent: 37 Reviewed: TMS Tech Note Reviewed Verification: I have reviewed the TMS Dry Cell And Battery Assembler Note and agree with the contents. The patient remains a candidate to continue TMS treatment per protocol. Assessment and Plan (1) Major depressive disorder, recurrent severe without psychotic features: Status: Acute (2) Panic disorder: Status: Acute (3) OCD (obsessive compulsive disorder): Qualifiers: Obsessive-compulsive disorder type: mixed obsessional thoughts and acts Qualified Code(s): F42.2 - Mixed obsessional thoughts and acts Status: Acute Plan PHQ-9 elevated has been chronically at this point denies active SI MT gradually increasing patient appears to be tolerating treatment
--- NOTE | 2024-08-01 16:25 | HO.TMSDAILY2 ---
TMS Daily Progress Note Daily TMS Progress Note Date of Service: 07/13/24 Week #: 1 Treatment #(04-05): 4 PHQ-9 Pre-Treatment (-): 26 PHQ-9 Most Recent (04-02): 26 OLEGARIO-7 Pre-Treatment (0-21): 21 OLEGARIO-7 Most Recent (0-21): 17 CGI-I Most Recent: 0 = Not Assessed Q-LES-Q-SF Most Recent: 37 Reviewed: TMS Tech Note Reviewed Verification: I have reviewed the TMS Reach Lift Truck Driver Note and agree with the contents. The patient remains a candidate to continue TMS treatment per protocol. Assessment and Plan (1) Major depressive disorder, recurrent severe without psychotic features: Status: Acute (2) Panic disorder: Status: Acute (3) OCD (obsessive compulsive disorder): Qualifiers: Obsessive-compulsive disorder type: mixed obsessional thoughts and acts Qualified Code(s): F42.2 - Mixed obsessional thoughts and acts Status: Acute Plan Patient without complaint of side effect MT% gradually increased continue plan of care
--- NOTE | 2024-08-01 16:27 | HO.TMSDAILY2 ---
TMS Daily Progress Note Daily TMS Progress Note Date of Service: 07/18/24 Week #: 2 Treatment #(04-05): 7 PHQ-9 Pre-Treatment (-): 26 PHQ-9 Most Recent (04-02): 26 OLEGARIO-7 Pre-Treatment (0-21): 21 OLEGARIO-7 Most Recent (0-21): 17 CGI-I Most Recent: 0 = Not Assessed Q-LES-Q-SF Most Recent: 37 Reviewed: TMS Tech Note Reviewed Verification: I have reviewed the TMS Oxygen Equipment Preparer Note and agree with the contents. The patient remains a candidate to continue TMS treatment per protocol. Assessment and Plan (1) Major depressive disorder, recurrent severe without psychotic features: Status: Acute (2) Panic disorder: Status: Acute (3) OCD (obsessive compulsive disorder): Qualifiers: Obsessive-compulsive disorder type: mixed obsessional thoughts and acts Qualified Code(s): F42.2 - Mixed obsessional thoughts and acts Status: Acute Plan Patient without complaint of side effect MT% gradually increased continue plan of care
--- NOTE | 2024-08-01 16:28 | P.PNPS_ITS ---
TMS Daily Progress Note Daily TMS Progress Note Date of Service: 07/20/24 Week #: 2 Treatment #(04-05): 9 PHQ-9 Pre-Treatment (-): 26 PHQ-9 Most Recent (04-02): 19 OLEGARIO-7 Pre-Treatment (0-21): 21 OLEGARIO-7 Most Recent (0-21): 17 CGI-I Most Recent: 0 = Not Assessed Q-LES-Q-SF Most Recent: 37 Reviewed: TMS Tech Note Reviewed Verification: I have reviewed the TMS Tipple Tender Note and agree with the contents. The patient remains a candidate to continue TMS treatment per protocol. Assessment and Plan (1) Major depressive disorder, recurrent severe without psychotic features: Status: Acute Plan Continue plan of care tolerating treatment no significant change to this point
--- NOTE | 2024-08-02 16:46 | HO.TMSDAILY2 ---
TMS Daily Progress Note Daily TMS Progress Note Date of Service: 08/02/24 Week #: 3 Treatment #(04-05): 16 PHQ-9 Pre-Treatment (1-): 26 PHQ-9 Most Recent (04-02): 22 OLEGARIO-7 Pre-Treatment (0-21): 21 OLEGARIO-7 Most Recent (0-21): 17 CGI-I Most Recent: 0 = Not Assessed Reviewed: TMS Mapping/Re-mapping completed Verification: I have reviewed the TMS Printed Circuit Boards Plasma Etcher Note and agree with the contents. The patient remains a candidate to continue TMS treatment per protocol. Assessment and Plan (1) Major depressive disorder, recurrent severe without psychotic features: Status: Acute Plan feeling more depressed and hopeless recently, remapping completed out of concern prior stimulus parameters were inadequately therapeutic. restart treatment with new (higher) MT and new coordinates Total time managing care of this patient today: 45 minutes.
--- NOTE | 2024-08-05 22:03 | P.PNPS_ITS ---
TMS Daily Progress Note Daily TMS Progress Note Date of Service: 07/23/24 Week #: 2 Treatment #(04-05): 10 PHQ-9 Pre-Treatment (-): 26 PHQ-9 Most Recent (04-02): 21 OLEGARIO-7 Pre-Treatment (0-21): 21 OLEGARIO-7 Most Recent (0-21): 17 CGI-I Most Recent: 0 = Not Assessed Q-LES-Q-SF Most Recent: 37 Reviewed: TMS Tech Note Reviewed Verification: I have reviewed the TMS Truck Railroad And Bus Motor Mechanic Note and agree with the contents. The patient remains a candidate to continue TMS treatment per protocol. Assessment and Plan (1) Major depressive disorder, recurrent severe without psychotic features: Status: Acute (2) Panic disorder: Status: Acute (3) OCD (obsessive compulsive disorder): Qualifiers: Obsessive-compulsive disorder type: mixed obsessional thoughts and acts Qualified Code(s): F42.2 - Mixed obsessional thoughts and acts Status: Acute Plan continue plan of car
--- NOTE | 2024-08-05 22:08 | P.PNPS_ITS ---
TMS Daily Progress Note Daily TMS Progress Note Date of Service: 07/24/24 Week #: 3 Treatment #(04-05): 11 PHQ-9 Pre-Treatment (-): 26 PHQ-9 Most Recent (04-02): 21 OLEGARIO-7 Pre-Treatment (0-21): 21 OLEGARIO-7 Most Recent (0-21): 17 CGI-I Most Recent: 0 = Not Assessed Q-LES-Q-SF Most Recent: 37 Reviewed: TMS Tech Note Reviewed Verification: I have reviewed the TMS Retort Load Expediter Note and agree with the contents. The patient remains a candidate to continue TMS treatment per protocol. Assessment and Plan (1) Major depressive disorder, recurrent severe without psychotic features: Status: Acute Plan cont plan of care no change till this point
--- NOTE | 2024-08-05 22:08 | P.PNPS_ITS ---
TMS Daily Progress Note Daily TMS Progress Note Date of Service: 07/31/24 Week #: 3 Treatment #(04-05): 15 PHQ-9 Pre-Treatment (-): 26 PHQ-9 Most Recent (04-02): 21 OLEGARIO-7 Pre-Treatment (0-21): 21 OLEGARIO-7 Most Recent (0-21): 17 CGI-I Most Recent: 0 = Not Assessed Q-LES-Q-SF Most Recent: 37 Reviewed: TMS Tech Note Reviewed Verification: I have reviewed the TMS On Awake Counselor Note and agree with the contents. The patient remains a candidate to continue TMS treatment per protocol. Assessment and Plan (1) Major depressive disorder, recurrent severe without psychotic features: Status: Acute Plan pt amotivational difficulty fx no c/o side effects pt feeling a dip reap is being considered
--- NOTE | 2024-08-05 22:08 | P.PNPS_ITS ---
TMS Daily Progress Note Daily TMS Progress Note Date of Service: 07/27/24 Week #: 3 Treatment #(04-05): 13 PHQ-9 Pre-Treatment (-): 26 PHQ-9 Most Recent (04-02): 21 OLEGARIO-7 Pre-Treatment (0-21): 21 OLEGARIO-7 Most Recent (0-21): 17 CGI-I Most Recent: 0 = Not Assessed Q-LES-Q-SF Most Recent: 37 Reviewed: TMS Tech Note Reviewed Verification: I have reviewed the TMS Aviation Electrical Technician Note and agree with the contents. The patient remains a candidate to continue TMS treatment per protocol. Assessment and Plan (1) Major depressive disorder, recurrent severe without psychotic features: Status: Acute Plan pt feeling somewhat more lethargic less motivated
--- NOTE | 2024-08-05 22:08 | P.PNPS_ITS ---
TMS Daily Progress Note Daily TMS Progress Note Date of Service: 07/25/24 Week #: 3 Treatment #(04-05): 12 PHQ-9 Pre-Treatment (-): 26 PHQ-9 Most Recent (04-02): 21 OLEGARIO-7 Pre-Treatment (0-21): 21 OLEGARIO-7 Most Recent (0-21): 17 CGI-I Most Recent: 0 = Not Assessed Q-LES-Q-SF Most Recent: 37 Reviewed: TMS Tech Note Reviewed Verification: I have reviewed the TMS Auto Radiator Specialist Note and agree with the contents. The patient remains a candidate to continue TMS treatment per protocol. Assessment and Plan (1) Major depressive disorder, recurrent severe without psychotic features: Status: Acute
--- NOTE | 2024-08-05 22:44 | P.PNPS_ITS ---
TMS Daily Progress Note Daily TMS Progress Note Date of Service: 08/03/24 Week #: 4 Treatment #(04-05): 16 PHQ-9 Pre-Treatment (-): 26 PHQ-9 Most Recent (04-02): 22 OLEGARIO-7 Pre-Treatment (0-21): 21 OLEGARIO-7 Most Recent (0-21): 17 CGI-I Most Recent: 0 = Not Assessed Q-LES-Q-SF Most Recent: 37 Reviewed: TMS Tech Note Reviewed Verification: I have reviewed the TMS Net Application Support Specialist Note and agree with the contents. The patient remains a candidate to continue TMS treatment per protocol. Assessment and Plan (1) Major depressive disorder, recurrent severe without psychotic features: Status: Acute Plan pt did well with initial remap tolerating tx cont plan of care aware of giana tx
--- NOTE | 2024-08-06 13:57 | HO.TMSDAILY2 ---
TMS Daily Progress Note Daily TMS Progress Note Date of Service: 08/06/24 Week #: 4 Treatment #(04-05): 17 PHQ-9 Pre-Treatment (1-): 26 PHQ-9 Most Recent (04-02): 20 OLEGARIO-7 Pre-Treatment (0-21): 21 OLEGARIO-7 Most Recent (0-21): 15 CGI-I Most Recent: 0 = Not Assessed Q-LES-Q-SF Most Recent: 37 Reviewed: TMS Tech Note Reviewed Verification: I have reviewed the TMS Irrigation Technician Note and agree with the contents. The patient remains a candidate to continue TMS treatment per protocol. Assessment and Plan (1) Major depressive disorder, recurrent severe without psychotic features: Status: Acute Plan continue tms tx plan
--- NOTE | 2024-08-14 14:48 | HO.TMSDAILY2 ---
TMS Daily Progress Note Daily TMS Progress Note Date of Service: 08/14/24 Week #: 5 Treatment #(04-05): 23 PHQ-9 Pre-Treatment (1-): 26 PHQ-9 Most Recent (04-02): 17 OLEGARIO-7 Pre-Treatment (0-21): 21 OLEGARIO-7 Most Recent (0-21): 18 CGI-I Most Recent: 0 = Not Assessed Q-LES-Q-SF Most Recent: 37 40 Reviewed: TMS Tech Note Reviewed Verification: I have reviewed the TMS Supervisor Mold Yard Note and agree with the contents. The patient remains a candidate to continue TMS treatment per protocol. Assessment and Plan (1) Major depressive disorder, recurrent severe without psychotic features: Status: Acute Plan Continue TMS treatment plan
--- NOTE | 2024-08-16 15:54 | HO.TMSDAILY2 ---
TMS Daily Progress Note Daily TMS Progress Note Date of Service: 08/16/24 Week #: 5 Treatment #(-): 25 PHQ-9 Pre-Treatment (1-): 26 PHQ-9 Most Recent (04-02): 17 OLEGARIO-7 Pre-Treatment (0-21): 21 OLEGARIO-7 Most Recent (0-21): 18 CGI-I Most Recent: 0 = Not Assessed Q-LES-Q-SF Most Recent: 37 40 Reviewed: TMS Tech Note Reviewed Verification: I have reviewed the TMS Tip Scourer Note and agree with the contents. The patient remains a candidate to continue TMS treatment per protocol. Assessment and Plan (1) Major depressive disorder, recurrent severe without psychotic features: Status: Acute Plan Continue TMS treatment plan
--- NOTE | 2024-08-17 14:33 | P.PNPS_ITS ---
TMS Daily Progress Note Daily TMS Progress Note Date of Service: 08/17/24 Week #: 6 Treatment #(-30): 26 PHQ-9 Pre-Treatment (1-): 26 PHQ-9 Most Recent (04-02): 17 OLEGARIO-7 Pre-Treatment (0-21): 21 OLEGARIO-7 Most Recent (0-21): 18 CGI-I Most Recent: 0 = Not Assessed Q-LES-Q-SF Most Recent: 37 40 Reviewed: TMS Tech Note Reviewed Verification: I have reviewed the TMS Sealing Machine Operator Note and agree with the contents. The patient remains a candidate to continue TMS treatment per protocol.
--- NOTE | 2024-08-20 15:20 | P.PNPS_ITS ---
TMS Daily Progress Note Daily TMS Progress Note Date of Service: 08/20/24 Week #: 6 Treatment #(-30): 27 PHQ-9 Pre-Treatment (1-): 26 PHQ-9 Most Recent (04-02): 18 OLEGARIO-7 Pre-Treatment (0-21): 21 OLEGARIO-7 Most Recent (0-21): 18 CGI-I Most Recent: 0 = Not Assessed Q-LES-Q-SF Most Recent: 37 40 Reviewed: TMS Tech Note Reviewed Verification: I have reviewed the TMS Building Engineer Note and agree with the contents. The patient remains a candidate to continue TMS treatment per protocol.
--- NOTE | 2024-08-21 14:12 | P.PNPS_ITS ---
TMS Daily Progress Note Daily TMS Progress Note Date of Service: 08/20/24 Week #: 6 Treatment #(04-05): 27 PHQ-9 Pre-Treatment (-): 26 PHQ-9 Most Recent (04-02): 18 OLEGARIO-7 Pre-Treatment (0-21): 21 OLEGARIO-7 Most Recent (0-21): 18 CGI-I Most Recent: 0 = Not Assessed Q-LES-Q-SF Most Recent: 37 40 Reviewed: TMS Tech Note Reviewed Verification: I have reviewed the TMS Cotton Sampler Note and agree with the contents. The patient remains a candidate to continue TMS treatment per protocol. Assessment and Plan (1) Major depressive disorder, recurrent severe without psychotic features: Status: Acute (2) OCD (obsessive compulsive disorder): Qualifiers: Obsessive-compulsive disorder type: mixed obsessional thoughts and acts Qualified Code(s): F42.2 - Mixed obsessional thoughts and acts Status: Acute Plan continue tms tx plan
--- NOTE | 2024-08-21 14:14 | HO.TMSDAILY2 ---
TMS Daily Progress Note Daily TMS Progress Note Date of Service: 08/21/24 Week #: 6 Treatment #(-): 28 PHQ-9 Pre-Treatment (-): 26 PHQ-9 Most Recent (04-02): 18 OLEGARIO-7 Pre-Treatment (0-21): 21 OLEGARIO-7 Most Recent (0-21): 18 CGI-I Most Recent: 0 = Not Assessed Q-LES-Q-SF Most Recent: 37 40 Reviewed: TMS Tech Note Reviewed Verification: I have reviewed the TMS Medical Research Associate Note and agree with the contents. The patient remains a candidate to continue TMS treatment per protocol. Assessment and Plan (1) Major depressive disorder, recurrent severe without psychotic features: Status: Acute (2) OCD (obsessive compulsive disorder): Qualifiers: Obsessive-compulsive disorder type: mixed obsessional thoughts and acts Qualified Code(s): F42.2 - Mixed obsessional thoughts and acts Status: Acute Plan continue tms treatment
--- NOTE | 2024-08-23 16:57 | P.PNPS_ITS ---
TMS Daily Progress Note Daily TMS Progress Note Date of Service: 08/23/24 Week #: 6 Treatment #(-): 29 PHQ-9 Pre-Treatment (-): 26 PHQ-9 Most Recent (04-02): 18 OLEGARIO-7 Pre-Treatment (0-21): 21 OLEGARIO-7 Most Recent (0-21): 18 CGI-I Most Recent: 0 = Not Assessed Q-LES-Q-SF Most Recent: 37 40 Reviewed: TMS Tech Note Reviewed Verification: I have reviewed the TMS Eating Disorder Specialist Note and agree with the contents. The patient remains a candidate to continue TMS treatment per protocol. Assessment and Plan (1) Major depressive disorder, recurrent severe without psychotic features: Status: Acute (2) Panic disorder: Status: Acute (3) OCD (obsessive compulsive disorder): Qualifiers: Obsessive-compulsive disorder type: mixed obsessional thoughts and acts Qualified Code(s): F42.2 - Mixed obsessional thoughts and acts Status: Acute Plan continue TMS treatment plan
--- NOTE | 2024-08-28 16:19 | P.PNPS_ITS ---
TMS Daily Progress Note Daily TMS Progress Note Date of Service: 08/27/24 Week #: 7 Treatment #(-): 31 PHQ-9 Pre-Treatment (-): 26 PHQ-9 Most Recent (04-02): 18 OLEGARIO-7 Pre-Treatment (0-21): 21 OLEGARIO-7 Most Recent (0-21): 18 CGI-I Most Recent: 0 = Not Assessed Q-LES-Q-SF Most Recent: 37 40 Reviewed: TMS Tech Note Reviewed Verification: I have reviewed the TMS Bait Painter Note and agree with the contents. The patient remains a candidate to continue TMS treatment per protocol. Assessment and Plan (1) Major depressive disorder, recurrent severe without psychotic features: Status: Acute (2) OCD (obsessive compulsive disorder): Qualifiers: Obsessive-compulsive disorder type: mixed obsessional thoughts and acts Qualified Code(s): F42.2 - Mixed obsessional thoughts and acts Status: Acute Plan Continue tms tx plan
--- NOTE | 2024-08-28 16:20 | P.PNPS_ITS ---
TMS Daily Progress Note Daily TMS Progress Note Date of Service: 08/28/24 Week #: 7 Treatment #(04-05): 32 PHQ-9 Pre-Treatment (-): 26 PHQ-9 Most Recent (04-02): 18 OLEGARIO-7 Pre-Treatment (0-21): 21 OLEGARIO-7 Most Recent (0-21): 18 CGI-I Most Recent: 0 = Not Assessed Q-LES-Q-SF Most Recent: 37 40 Reviewed: TMS Tech Note Reviewed Verification: I have reviewed the TMS Digital Marketing Assistant Note and agree with the contents. The patient remains a candidate to continue TMS treatment per protocol. Assessment and Plan (1) Major depressive disorder, recurrent severe without psychotic features: Status: Acute (2) OCD (obsessive compulsive disorder): Qualifiers: Obsessive-compulsive disorder type: mixed obsessional thoughts and acts Qualified Code(s): F42.2 - Mixed obsessional thoughts and acts Status: Acute Plan continue TMS tx plan
--- NOTE | 2024-09-03 10:17 | P.PNPS_ITS ---
TMS Daily Progress Note Daily TMS Progress Note Date of Service: 08/30/24 Week #: 7 Treatment #(04-05): 34 PHQ-9 Pre-Treatment (-): 26 PHQ-9 Most Recent (04-02): 18 OLEGARIO-7 Pre-Treatment (0-21): 21 OLEGARIO-7 Most Recent (0-21): 18 CGI-I Most Recent: 0 = Not Assessed Q-LES-Q-SF Most Recent: 37 40 Reviewed: TMS Tech Note Reviewed Verification: I have reviewed the TMS Vacuum Conditioner Operator Note and agree with the contents. The patient remains a candidate to continue TMS treatment per protocol. Assessment and Plan (1) Major depressive disorder, recurrent severe without psychotic features: Status: Acute (2) Panic disorder: Status: Acute (3) OCD (obsessive compulsive disorder): Qualifiers: Obsessive-compulsive disorder type: mixed obsessional thoughts and acts Qualified Code(s): F42.2 - Mixed obsessional thoughts and acts Status: Acute Plan Continue TMS treatment
--- NOTE | 2024-09-03 10:29 | HO.TMSDAILY2 ---
TMS Daily Progress Note Daily TMS Progress Note Date of Service: 09/03/24 Week #: 8 Treatment #(04-05): 36 PHQ-9 Pre-Treatment (-): 26 PHQ-9 Most Recent (04-02): 18 OLEGARIO-7 Pre-Treatment (0-21): 21 OLEGARIO-7 Most Recent (0-21): 18 CGI-I Most Recent: 3 = Minimally Improved Q-LES-Q-SF Most Recent: 37 40 Reviewed: TMS Tech Note Reviewed Verification: I have reviewed the TMS Electric Locomotive Crane Operator Note and agree with the contents. I met with the patient to assess at last visit; Pt reports some improvement from TMS treatmetns. He reports intermittent passive SI when he allows his mind to dissect issues he often ends with the thought whats the point. He says he ignores the thoughts and would never act on SI. He reports has no plan or intention. He reports feeling hopeful about the future aand is working with his pssychiatrist to change medications and will continue to see therpaist whom he says he has a very good relationship with; he is also working with the [facility] weight [facility] program and feels hopeful about that. Assessment and Plan (1) Major depressive disorder, recurrent severe without psychotic features: Status: Acute (2) OCD (obsessive compulsive disorder): Qualifiers: Obsessive-compulsive disorder type: mixed obsessional thoughts and acts Qualified Code(s): F42.2 - Mixed obsessional thoughts and acts Status: Acute (3) Panic disorder: Status: Acute Plan Pt completing TMS today; He will follow up with his outpatient providers
--- NOTE | 2024-09-09 23:36 | P.PNPS_ITS ---
TMS Daily Progress Note Daily TMS Progress Note Date of Service: 07/11/24 Week #: 1 Treatment #(04-05): 2 PHQ-9 Pre-Treatment (-): 26 PHQ-9 Most Recent (04-02): 26 OLEGARIO-7 Pre-Treatment (0-21): 21 OLEGARIO-7 Most Recent (0-21): 18 CGI-I Most Recent: 3 = Minimally Improved Q-LES-Q-SF Most Recent: 37 40 Reviewed: TMS Tech Note Reviewed Verification: I have reviewed the TMS Product Development Assistant Note and agree with the contents. The patient remains a candidate to continue TMS treatment per protocol. Assessment and Plan (1) Major depressive disorder, recurrent severe without psychotic features: Status: Acute (2) Panic disorder: Status: Acute Plan mt % gradually inc tolerated tx
--- NOTE | 2024-09-09 23:40 | HO.TMSDAILY2 ---
TMS Daily Progress Note Daily TMS Progress Note Date of Service: 08/07/24 Week #: 4 Treatment #(-): 18 PHQ-9 Pre-Treatment (1-): 26 PHQ-9 Most Recent (04-02): 20 OLEGARIO-7 Pre-Treatment (0-21): 21 OLEGARIO-7 Most Recent (0-21): 18 CGI-I Most Recent: 3 = Minimally Improved Q-LES-Q-SF Most Recent: 37 40 Reviewed: TMS Tech Note Reviewed Verification: I have reviewed the TMS Applied Behavior Science Specialist Note and agree with the contents. The patient remains a candidate to continue TMS treatment per protocol. Assessment and Plan (1) Major depressive disorder, recurrent severe without psychotic features: Status: Acute Plan cont plan of care improvement noted
--- NOTE | 2024-09-09 23:46 | P.PNPS_ITS ---
TMS Daily Progress Note Daily TMS Progress Note Date of Service: 08/08/24 Week #: 4 Treatment #(04-05): 19 PHQ-9 Pre-Treatment (1-): 26 PHQ-9 Most Recent (04-02): 20 OLEGARIO-7 Pre-Treatment (0-21): 21 OLEGARIO-7 Most Recent (0-21): 18 CGI-I Most Recent: 3 = Minimally Improved Q-LES-Q-SF Most Recent: 37 40 Reviewed: TMS Tech Note Reviewed Verification: I have reviewed the TMS Duplication Specialist Note and agree with the contents. The patient remains a candidate to continue TMS treatment per protocol. Assessment and Plan (1) Major depressive disorder, recurrent severe without psychotic features: Status: Acute Plan cont plan of care monitor response
--- NOTE | 2024-09-09 23:51 | P.PNPS_ITS ---
TMS Daily Progress Note Daily TMS Progress Note Date of Service: 08/10/23 Week #: 4 Treatment #(04-05): 20 PHQ-9 Pre-Treatment (1-): 26 PHQ-9 Most Recent (04-02): 20 OLEGARIO-7 Pre-Treatment (0-21): 21 OLEGARIO-7 Most Recent (0-21): 18 CGI-I Most Recent: 3 = Minimally Improved Q-LES-Q-SF Most Recent: 37 40 Reviewed: TMS Tech Note Reviewed Verification: I have reviewed the TMS Firmware Test Engineer Note and agree with the contents. The patient remains a candidate to continue TMS treatment per protocol. Assessment and Plan (1) Major depressive disorder, recurrent severe without psychotic features: Status: Acute Plan cont plan of care
--- NOTE | 2024-09-09 23:56 | HO.TMSDAILY2 ---
TMS Daily Progress Note Daily TMS Progress Note Date of Service: 08/10/24 Week #: 5 Treatment #(-): 21 PHQ-9 Pre-Treatment (1-): 26 PHQ-9 Most Recent (04-02): 20 OLEGARIO-7 Pre-Treatment (0-21): 21 OLEGARIO-7 Most Recent (0-21): 18 CGI-I Most Recent: 3 = Minimally Improved Q-LES-Q-SF Most Recent: 37 40 Reviewed: TMS Tech Note Reviewed Verification: I have reviewed the TMS Truck Body Builder Apprentice Note and agree with the contents. The patient remains a candidate to continue TMS treatment per protocol. Assessment and Plan (1) Major depressive disorder, recurrent severe without psychotic features: Status: Acute Plan pt with some improvement tolerating tx
--- NOTE | 2024-09-10 00:01 | HO.TMSDAILY2 ---
TMS Daily Progress Note Daily TMS Progress Note Date of Service: 08/13/24 Week #: 5 Treatment #(-): 22 PHQ-9 Pre-Treatment (1-): 26 PHQ-9 Most Recent (04-02): 17 OLEGARIO-7 Pre-Treatment (0-21): 21 OLEGARIO-7 Most Recent (0-21): 18 CGI-I Most Recent: 3 = Minimally Improved Q-LES-Q-SF Most Recent: 37 40 Reviewed: TMS Tech Note Reviewed Verification: I have reviewed the TMS Double End Sewer Note and agree with the contents. The patient remains a candidate to continue TMS treatment per protocol. Assessment and Plan (1) Major depressive disorder, recurrent severe without psychotic features: Status: Acute Plan cont plan of care tolerating tx improvement noted
--- NOTE | 2024-09-10 00:06 | HO.TMSDAILY2 ---
TMS Daily Progress Note Daily TMS Progress Note Date of Service: 08/15/24 Week #: 5 Treatment #(04-05): 22 PHQ-9 Pre-Treatment (-): 26 PHQ-9 Most Recent (04-02): 17 OLEGARIO-7 Pre-Treatment (0-21): 21 OLEGARIO-7 Most Recent (0-21): 18 CGI-I Most Recent: 3 = Minimally Improved Q-LES-Q-SF Most Recent: 37 40 Reviewed: TMS Tech Note Reviewed Verification: I have reviewed the TMS Boots And Shoes Supervisor Note and agree with the contents. The patient remains a candidate to continue TMS treatment per protocol. Assessment and Plan (1) Major depressive disorder, recurrent severe without psychotic features: Status: Acute Plan some difficulties noted
--- NOTE | 2024-09-10 00:10 | P.PNPS_ITS ---
TMS Daily Progress Note Daily TMS Progress Note Date of Service: 08/24/24 Week #: 6 Treatment #(-): 30 PHQ-9 Pre-Treatment (-): 26 PHQ-9 Most Recent (04-02): 17 OLEGARIO-7 Pre-Treatment (0-21): 21 OLEGARIO-7 Most Recent (0-21): 18 CGI-I Most Recent: 3 = Minimally Improved Q-LES-Q-SF Most Recent: 37 40 Reviewed: TMS Tech Note Reviewed Verification: I have reviewed the TMS Aix System Administrator Note and agree with the contents. The patient remains a candidate to continue TMS treatment per protocol. Assessment and Plan (1) Major depressive disorder, recurrent severe without psychotic features: Status: Acute Plan tolerated tx some clear stressors mild improvement
--- NOTE | 2024-09-10 00:15 | HO.TMSDAILY2 ---
TMS Daily Progress Note Daily TMS Progress Note Date of Service: 08/29/24 Week #: 7 Treatment #(04-05): 33 PHQ-9 Pre-Treatment (1-): 26 PHQ-9 Most Recent (04-02): 17 OLEGARIO-7 Pre-Treatment (0-21): 21 OLEGARIO-7 Most Recent (0-21): 18 CGI-I Most Recent: 3 = Minimally Improved Q-LES-Q-SF Most Recent: 37 40 Reviewed: TMS Tech Note Reviewed Verification: I have reviewed the TMS Maintenance Shop Laborer Note and agree with the contents. The patient remains a candidate to continue TMS treatment per protocol. Assessment and Plan (1) Major depressive disorder, recurrent severe without psychotic features: Status: Acute Plan tolerated tx some clear stressors mild improvement
--- NOTE | 2024-09-10 00:19 | P.PNPS_ITS ---
TMS Daily Progress Note Daily TMS Progress Note Date of Service: 08/31/24 Week #: 8 Treatment #(04-05): 35 PHQ-9 Pre-Treatment (-): 26 PHQ-9 Most Recent (04-02): 17 OLEGARIO-7 Pre-Treatment (0-21): 21 OLEGARIO-7 Most Recent (0-21): 18 CGI-I Most Recent: 3 = Minimally Improved Q-LES-Q-SF Most Recent: 37 40 Reviewed: TMS Tech Note Reviewed Verification: I have reviewed the TMS Bioinformatics Programmer Note and agree with the contents. The patient remains a candidate to continue TMS treatment per protocol. Assessment and Plan (1) Major depressive disorder, recurrent severe without psychotic features: Status: Acute Plan cont plan of care no adverse effects
== END 2024-09-04 12:00 | disposition home or self-care (01) ==
LOC: HO.PTMS 10:00
PROVIDERS: PCP Internal Medicine; Referring Provider Psychiatry & Neurology Psychiatry; Visit Provider Clinical Nurse Specialist Psychiatric/Mental Health
DX: F33.2 Major depressive disorder, recurrent severe without psychotic features (principal); F42.2 Mixed obsessional thoughts and acts; F41.0 Panic disorder [episodic paroxysmal anxiety]; Z79.899 Other long term (current) drug therapy
CPT/HCPCS: 90867; 90868; 90869